=== PATIENT | female | born 1975 | race Caucasian/White ===

== ENCOUNTER → 2017-11-15 | Outpatient (CLI) | payer OTHER ==
--- NOTE | 2017-11-15 16:24 | RADIOLOGY IMAGING REPORT ---
FACILITY: [facility] PATIENT NAME: Joanne Wilde : 1975 MR: [id number] V: [id number] EXAM DATE: ORDERING PHYSICIAN: MICHAEL SOLARES TECHNOLOGIST: Location: [facility] [place] Patient: Joanne Wilde : 1975 Visit/Account:[id number] Date of Sevice: 11/15/2017 TRANSVAGINAL NON-OB HISTORY: Irregular periods TECHNIQUE: Transvaginal ultrasound pelvis. COMPARISON: None. FINDINGS: Uterus: Retroflexed; 9.9 cm length x 5.4 cm AP x 6.2 cm transverse. Myometrium: Hypervascular and mildly heterogeneous. There is a 1.4 x 0.9 x 1.5 cm coarse calcificati on along the posterior aspect uterine fundus likely a fibroid.. There is an additional 6 mm coarse c alcification along the posterior aspect lower uterine segment Endometrium: There is a small amount of fluid within the endometrial canal; double thickness 12.5 mm. Cervix: Nabothian cysts. Ovaries: Right - 2.8 x 2.5 x 2.2 cm Left - 2.8 x 2 x 1.8 cm. There is a 1.4 cm paraovarian cyst on the left Blood flow is documented in each ovary by duplex Doppler ultrasound. Adnexa: Grossly unremarkable. Free pelvic fluid: None. IMPRESSION: Retroverted uterus containing a 1.5 cm coarse calcified fibroid along the posterior aspect of the fun dus. There is an additional 6 mm coarse calcination along the posterior aspect lower uterine segment A small amount of fluid is noted within the endometrial canal Nabothian cysts 1.4 cm left paraovarian cyst Report Dictated By: Leigh Johnson MD at 11/15/2017 4:16 PM Report E-Signed By: Leigh Johnson MD at 11/15/2017 4:20 PM WSN:[email or web address]
== END ==
LOC: US 03:31
PROVIDERS: ATTEND Nurse Practitioner Family
DX: N85.8 Other specified noninflammatory disorders of uterus (principal); N88.8 Other specified noninflammatory disorders of cervix uteri; N83.202 Unspecified ovarian cyst, left side
CPT/HCPCS: 76830

== ENCOUNTER → 2017-11-22 | Outpatient (CLI) | payer OTHER ==
--- NOTE | 2017-11-23 09:10 | RADIOLOGY IMAGING REPORT ---
FACILITY: [facility] PATIENT NAME: KAYY HEDRICK : [id number] MR: [id number] V: [id number] EXAM DATE: ORDERING PHYSICIAN: MICHAEL SOLARES TECHNOLOGIST: Judy Christy PROCEDURE:BILATERAL DIGITAL SCREENING MAMMOGRAM WITH CAD ASSISTED INTERPRETATION & 3D TOMOSYNTHESIS COMPARISON:Prior mammograms 10/10/15. INDICATIONS:SCREENING FINDINGS: Moderately heterogeneous fibroglandular tissue is seen throughout the breasts. The parenchymal pattern has remained stable allowing for difference in mammographic technique & patient positioning. There is no evidence of malignant appearing mass, malignant appearing calcifications or other secondary sign of malignancy in either breast. DIAGNOSTIC CATEGORY 1--NEGATIVE. RECOMMENDATIONS: ROUTINE MAMMOGRAM AND CLINICAL EVALUATION. IMPRESSION: BIRADS 1: Negative. No significant abnormality is seen. Dictated by: Leigh Johnson M.D. on 11/22/2017 at 16:03 Transcribed by: YUE on 11/22/2017 at 16:06 Approved by: Leigh Johnson M.D. on 11/23/2017 at 9:06 [facility]
== END ==
LOC: MAMO 00:50
PROVIDERS: ATTEND Nurse Practitioner Family
DX: Z12.31 Encounter for screening mammogram for malignant neoplasm of breast (principal)
CPT/HCPCS: 77063; 77067

== ENCOUNTER 2017-12-22 04:08 | Day surgery (SDC) | payer OTHER ==
[2017-12-22] VITALS (8 sets, daily range): BP systolic 118–141; BP diastolic 74–91
[~2017-12-22] VITALS: Ht 177.8 cm; Wt 83.9 kg
[2017-12-22] MEDS ORDERED: FAMOTIDINE 20 MG TAB PO ONE (06:30)
[2017-12-22] MEDS ORDERED: NORMOSOL R SOLN(*) 1000 ML BAG 1,000 ML IV PRN (06:30)
[2017-12-22] MEDS ORDERED: MIDAZOLAM 2 MG/2 ML VIAL IVP PRN (06:30)
[2017-12-22] MEDS ORDERED: LIDOCAINE/SOD BICARB 8.4% SYR ID ONE (06:30)
[2017-12-22 07:13] LABS: PLATELET COUNT, AUTOMATED 347 K/uL (150-450)
[2017-12-22] MEDS ORDERED: DEXAMETHASONE SOD PHOS 10MG/ML ONE (07:49)
[2017-12-22] MEDS ORDERED: ONDANSETRON 4 MG/2 ML VIAL ONE (07:49)
[2017-12-22] MEDS ORDERED: PROPOFOL EMUL(*) 10MG/ML 20 ML 20 ML ONE (07:49)
[2017-12-22] MEDS ORDERED: LIDOCAINE MPF 1% 5 ML VIAL ONE (07:49)
[2017-12-22] MEDS ORDERED: fentaNYL CITR 100 MCG/2 ML AMP ONE (07:49)
[2017-12-22] MEDS ORDERED: KETAMINE HCL-NS 50 MG/5 ML SYR ONE (07:51)
[2017-12-22] MEDS ORDERED: LOR5/325 PO (08:35)
[2017-12-22] MEDS ORDERED: IBUP800T37 PO (08:35)
--- NOTE | 2017-12-22 09:49 | Post Operative Note ---
Operative Note - [employer] Operative Day Date: Dec 22, 2017 Time: 09:48 Physicians Surgeon: Ely Anesthesia: Nick, General LMA Diagnosis Pre-Op Diagnosis: Endometrial polyp Menometrorrhagia Post-Op Diagnosis: Same Procedure Findings: Two separate endometrial polyps on the left posterior aspect of endometrium Procedure(s): Hscope polypectomy Specimen Removed:(Maybe N/A): Endometrial polyp Fluids Fluids: IVF: 700cc UOP: 50cc Hscope Used 1200cc, deficit 219cc Estimated Blood Loss: Minimal MUSHTAQ HAYDEN MD Dec 22, 2017 09:49
[2017-12-22] MEDS ORDERED: LR(*) 1000 ML BAG 1,000 ML IV ONE (09:54)
[2017-12-22] MEDS ORDERED: APAP/HYDROCODONE 325/5 TAB PO PRN (09:55)
[2017-12-22] MEDS ORDERED: METOCLOPRAMIDE 10 MG/2 ML SDV IVP PRN (09:55)
--- NOTE | 2017-12-22 09:56 | Short(Outpt) Discharge Summary ---
Discharge Summary Reason for Hosp/Final Diag: (1) Status post hysteroscopy Departure Discharge to: Home, Self Care Discharge Instructions Home Meds Active Scripts Hydrocodone Bit/Acetaminophen (HYDROCODON-ACETAMINOPHEN 5-325) 1 Each Tablet, 1 EACH PO Q6H PRN for pain, #10 TAB 0 Refills Prov:MUSHTAQ HAYDEN MD 12/22/17 Follow up Referrals: RADIO ANNOUNCER - In Two Weeks @ [facility] [place] with MUSHTAQ HAYDEN MD Diet: Regular Activity: As Tolerated Special Instructions: PELVIC REST. FOLLOW UP WITH DR HAYDEN IN ONE WEEK. MUSHTAQ HAYDEN MD Dec 22, 2017 09:56
[2017-12-22] MEDS ORDERED: IBUPROFEN 800 MG TAB PO ONE (10:09)
--- NOTE | 2017-12-22 12:27 | OPERATIVE REPORT 1 ---
EVENT DATE: December 22, 2017 SURGEON: Ramona Graves MD ANESTHESIOLOGIST: Shelton Nick MD ANESTHESIA: General. PREOPERATIVE DIAGNOSIS 1. Endometrial polyp. 2. Heavy and irregular vaginal menstrual bleeding. POSTOPERATIVE DIAGNOSIS 1. Endometrial polyp. 2. Heavy and irregular vaginal menstrual bleeding. FINDINGS Two separate endometrial polyps on the left posterior aspect of the endometrium. PROCEDURE PERFORMED Hysteroscopic polypectomy. SPECIMENS Endometrial polyp. IV FLUIDS 700 cc. URINE OUTPUT 50 cc. HYSTEROSCOPIC FLUID USED 1200 cc with a 219 cc deficit. ESTIMATED BLOOD LOSS Minimal. INDICATIONS This patient is a 42-year-old, 2, para 2 who presented to clinic with heavy and irregular bleeding. An ultrasound was performed on 11/15/2017, which revealed a homogenous hyperechoic bleed in the endometrium consistent with a polyp. She, therefore, was consented for surgical removal hysteroscopically. She was admitted for the same. DESCRIPTION OF PROCEDURE The patient was properly identified and taken to the operating room. She was placed under general anesthesia and placed in the dorsolithotomy position and placed and draped in usual fashion for a vaginal procedure. A speculum was placed to visualize the cervix, which was noted to be nulliparous and without lesion. The anterior lip of the cervix was grasped with an Allis clamp and placed on gentle traction. An os finder was utilized to enter the endometrial cavity with slight resistance at the internal cervical os. The cervix was attempted to be dilated using Hegar dilators. However, there was resistance at the internal os with each side of the dilator. Therefore, the hysteroscope was assembled and primed and introduced. The endometrial cavity could be identified but was noted to be retroverted and was difficult to get in. Therefore, the hysteroscope was removed and the Allis clamp was transitioned to the posterior aspect of the cervix. The os finder was again able to be easily passed. The hysteroscope was reintroduced into the cervix and was able to be directed into the endometrial cavity under direct visualization. Once the endometrial cavity was visualized, there were two separate polyps noted. The largest was attached to the left posterior aspect of the endometrium. There was an additional smaller polyp right adjacent to the left tubal ostia. The MyoSure LITE device was assembled and introduced. Both polyps were excised without difficulty using the MyoSure LITE device. Once this was completed, a picture was taken with normal appearing endometrial cavity and bilateral tubal ostia. At this time, the hysteroscope was removed followed by removal of the Allis clamp. Hemostasis was assured and the speculum was removed. The patient tolerated the procedure well and recovered in the Post-Anesthesia Care Unit. ANALIA
[2017-12-22] MEDS ORDERED: IBUPROFEN 800 MG TAB PO SCH (17:00)
== END 2017-12-22 10:25 | disposition home or self-care (01) ==
LOC: OR 04:08
PROVIDERS: ATTEND Obstetrics & Gynecology
DX: N84.0 Polyp of corpus uteri (principal); N92.6 Irregular menstruation, unspecified
CPT/HCPCS: 36415; 58558; 84703; 85025; 88305; J1100; J2001; J2405; J2704; J3010; J3490; 82310; 82374; 82435; 82565; 82947; 84132; 84295; 84520